=== PATIENT | female | born 1985 | race Hispanic/Latino ===

== ENCOUNTER 2017-06-10 02:49 | Emergency (ER) | payer SELFPAY ==
[~2017-06-10] VITALS: Ht 149.9 cm; Wt 50.0 kg
[2017-06-10 04:10] LABS: HEMOGLOBIN 12.8 g/dl (12.0-16.0); IMMATURE GRANULOCYTES 0.4 % (0.0-1.0); MEAN CELL VOLUME 85.2 fL CALC (80.0-100.0); MEAN CORPUSCULAR HGB 27.9 pG CALC (26.0-32.0); MEAN CORPUSCULAR HGB CONC 32.8 g/L CALC (32.0-36.0); NEUT# 3.57 thou/uL (2.00-7.15); RED BLOOD COUNT 4.58 mill/uL (4.20-5.60); RED CELL DISTRI WIDTH 12.9 % (11.5-15.5)
[2017-06-10 04:36] LABS: ALBUMIN 4.4 g/dL (3.2-5.0); ALKALINE PHOSPHATASE 96 u/l (38-126); AMYLASE 82 u/l (30-110); ANION GAP 20 (6-22 (CALC)); BILIRUBIN, TOTAL 0.4 mg/dL (0.0-1.4); BUN 14 mg/dL (7-17); BUN/CREATININE RATIO 26 (12-20 (CALC)); CALCIUM 10.2 mg/dL (8.4-10.2); CARBON DIOXIDE 23 mmol/l (22-30); CHLORIDE 102 mmol/l (95-108); CREATININE 0.5 mg/dL (0.5-1.0); GFR > 60 ML/MIN (>=60 (CALC)); GFR FOR AFR.AMER. > 60 ML/MIN (>=60 (CALC)); GLUCOSE 99 mg/dL (65-105); LIPASE 172 u/l (23-300); POTASSIUM 3.5 mmol/l (3.5-5.1); SGOT/AST 34 u/l (14-36); SGPT/ALT 40 u/l (9-52); SODIUM 142 mmol/l (137-146); TOTAL PROTEIN 7.7 g/dL (6.3-8.2)
[2017-06-10] MEDS ORDERED: CLARITHROMYC500 M2 PO (06:02)
[2017-06-10] MEDS ORDERED: ULTRAM50 M1 PO (06:02)
[2017-06-10] MEDS ORDERED: OMEPRAZOLE20 M2 PO (06:02)
[2017-06-10] MEDS ORDERED: AMPICILLIN500 MG PO (06:02)
[2017-06-10 06:40] VITALS: BP 108/71
== END 2017-06-10 06:40 | disposition home or self-care (01) | DRG 392 ==
LOC: ED 02:49
PROVIDERS: Emergency Medicine
DX: R10.13 Epigastric pain (principal); B96.81 Helicobacter pylori [H. pylori] as the cause of diseases classified elsewhere; K27.9 Peptic ulcer, site unspecified, unspecified as acute or chronic, without hemorrhage or perforation; N83.8 Other noninflammatory disorders of ovary, fallopian tube and broad ligament; R11.0 Nausea
CPT/HCPCS: Q9967